=== PATIENT | male | born 1955 | race Caucasian/White ===

== ENCOUNTER 2025-04-22 07:52 | Day surgery (SDC) | payer MEDICARE, BC ==
[2025-04-22 08:46] LABS: PLATELET COUNT (AUTO) 226 K/uL (150-450); RED BLOOD CELL COUNT(AUTO) 4.20 MIL/uL (4.5-6.0); RED CELL DISTRIBUTION WIDTH 20.7 % (11.5-15.0); WHITE BLOOD COUNT (AUTO) 24.4 K/uL (4.3-11.0)
[2025-04-22] MEDS ORDERED: BUPIVACAINE 0.5 % PF 150 MG/30 ML VIAL ONE (09:09)
[2025-04-22] MEDS ORDERED: ANESTHESIA TRAY IN PYXIS 1 EA TRAY MC ONE (09:09)
[2025-04-22] MEDS ORDERED: LIDOCAINE HCL/MPF 1% 30 ML VIAL IJ ONE (09:09)
[2025-04-22] MEDS ORDERED: LIDOCAINE 1%-EPI 1:100,000 20 ML VIAL ONE (09:09)
[2025-04-22] MEDS ORDERED: MIDAZOLAM HCL 2 MG/2ML VIAL ONE (09:39)
[2025-04-22 10:37] LABS: LYMPHOCYTES % (MANUAL) 13 % (16-48); MONOCYTES % (MANUAL) 6 % (0-11.0); NEUTROPHILS % (MANUAL) 81 (42-76); PLATELET ESTIMATE ADEQUATE
[2025-04-22] MEDS ORDERED: HEPARIN SODIUM, PORCINE 1,000 UNIT/ML VIAL ONE (11:00)
== END 2025-04-22 12:20 | disposition home or self-care (01) ==
LOC: DS 07:52
PROVIDERS: ATTEND Surgery
DX: C34.90 Malignant neoplasm of unspecified part of unspecified bronchus or lung (principal); C78.7 Secondary malignant neoplasm of liver and intrahepatic bile duct; I10 Essential (primary) hypertension; Z85.118 Personal history of other malignant neoplasm of bronchus and lung; Z79.899 Other long term (current) drug therapy; Z98.890 Other specified postprocedural states
CPT/HCPCS: 36415; 36561; 71045; 85007; 85027; 93005; C1788; J0690; J1644; J2250; J2704; J3490; J7030